=== PATIENT | male | born 1965 | race Caucasian/White ===

== ENCOUNTER 2018-07-22 07:51 | Emergency (ER) | payer OTHER ==
[2018-07-22] MEDS ORDERED: NORMAL SALINE 1000 ML 1,000 ML IV ONE (08:44)
[2018-07-22] MEDS ORDERED: ONDANSETRON HCL INJ/PF 4 MG/2 ML SDV IV ONE (08:47)
[2018-07-22] MEDS ORDERED: KETOROLAC TROMETHAMINE INJ/PF 30 MG/1 ML SDV IV ONE (08:47)
--- NOTE | 2018-07-22 08:50 | ER Document Report ---
ED General - General Chief Complaint: Flank Pain Stated Complaint: FLANK PAIN Time Seen by Provider: 07/22/18 08:40 Notes: 53-year-old male presents with sudden onset of right flank pain starting this morning. Complains of achy pain in his right flank rating to the right lower quadrant of his abdomen he denies any testicular pain complains of increased urinary frequency but denies gross hematuria denies fever chills. Denies any falls or trauma. Denies chest pain denies shortness of breath rates his pain is moderate nothing really makes it better or worse. Upon arrival into room to evaluate and patient is up pacing along the bed. Appears anxious. TRAVEL OUTSIDE OF THE [place] IN LAST 30 DAYS: No - Related Data Allergies/Adverse Reactions: No Known Allergies Allergy (Unverified 07/22/18 07:53) Past Medical History - Social History Smoking Status: Unknown if Ever Smoked Family History: Reviewed & Not Pertinent Review of Systems - Review of Systems Constitutional: denies: Chills, Fever Cardiovascular: denies: Chest pain, Edema Respiratory: denies: Hurts to breathe, Short of breath Gastrointestinal: Abdominal pain, Nausea. denies: Vomiting, Constipation, Black stools, Rectal bleeding Musculoskeletal: Back pain Skin: denies: Rash Neurological/Psychological: denies: Headaches -: Yes All other systems reviewed and negative Physical Exam - Vital signs Vitals: Temp Pulse Resp BP Pulse Ox 97.8 F 64 16 192/105 H 99 07/22/18 08:00 07/22/18 08:00 07/22/18 08:00 07/22/18 08:00 07/22/18 08:00 - Notes Notes: GENERAL_APPEARANCE: well_nourished, alert, cooperative, patient looks very uncomfortable standing pacing VITALS: reviewed, see vital signs table. HEAD: no_swelling\tenderness on the head. EYES: PERRL, EOMI, conjunctiva_clear. NOSE: no_nasal_discharge. MOUTH: (-)decreased moisture. THROAT: no_tonsilar_inflammation, no_airway_obstruction. no_lymphadenopathy NECK: supple, no_neck_tenderness, (-)thyromegaly. BACK: Right CVA_back_tenderness. CHEST_WALL: no_chest_tenderness. LUNGS: no_wheezing, no_rales, no_rhonchi, (-)accessory muscle use, good air exchange bilateral. HEART: normal_rate, normal_rhythm, normal_S1, normal_S2, (-)S3, (-)S4, no_murmur, no_rub. ABDOMEN: normal_BS, soft, lower quadrant_abd_tenderness, (-)guarding, (- )rebound, no_organomegaly, no_abd_masses. Rovsing sign negative obturator and psoas sign negative EXTREMITIES: good pulses in all_extremities, no_swelling\tenderness in the extremities, no_edema. SKIN: warm, dry, good_color, no_rash. MENTAL_STATUS: speech_clear, oriented_X_3, normal_affect, responds_appropriately to questions. Course - Re-evaluation Re-evalutation: 07/22/18 08:50 The patient seems to clinically have a kidney stone we will get a CT the urine and some blood work. We will give him Toradol and Zofran for pain IV fluids. Patient is up pacing alongside of the bed. He is never had a kidney stone in the past. 07/22/18 10:02 Patient does have a 2-3 mm stone that is passed into the bladder. He does have residual hydro-on the right. This will resolve he still having some pain we will give him a couple pain pills along with some Pyridium he is not infected but the Pyridium will help settle down spasm and numb the ureter. The patient will feel better with this. I will have him follow-up with his doctor if he has an additional stone he may need to see urology for evaluation. - Vital Signs Vital signs: Temp Pulse Resp BP Pulse Ox 97.8 F 64 16 187/105 H 99 07/22/18 08:00 07/22/18 08:00 07/22/18 08:00 07/22/18 09:32 07/22/18 08:00 - Laboratory Result Diagrams: 07/22/18 08:57 07/22/18 08:57 Laboratory results interpreted by me: 07/22/18 07/22/18 07/22/18 07:55 08:57 08:57 Seg Neutrophils % 86.0 H Lymphocytes % 10.0 L Monocytes % 2.7 L Absolute Neutrophils 8.3 H BUN 24 H Glucose 174 H AST 80 H ALT 86 H Urine Glucose (UA) >=500 H Urine Blood SMALL H - Diagnostic Test Radiology reviewed: Reports reviewed Radiology results interpreted by me: 07/22/18 10:02 Abdomen/Pelvis CT 07/22/18 08:45 IMPRESSION: 1. Mild right hydroureteronephrosis maybe related to passage of a renal calculus. Near the right ureterovesicle junction, a 2--3 mm calculus is identified within the urinary bladder lumen. 2. Nonobstructing right renal calculi. 3. An exophytic indeterminate left renal lesion, may represent a small cyst. Evaluation with renal ultrasound suggested. 4. Additional findings as above. Discharge - Discharge Clinical Impression: Kidney stone on right side Condition: Good Disposition: HOME, SELF-CARE Instructions: Kidney Stone ([facility]) Additional Instructions: The stone is passed into the bladder the worst is over. You will still have some residual pain due to the amount of damage to the ureter sustained during the passage of the stone. Prescriptions: Hydrocodone/Acetaminophen [[place] 5-325 mg Tablet] 1 tab PO Q4H PRN #10 tablet PRN Reason: Phenazopyridine HCl [Pyridium 200 mg Tablet] 200 mg PO TID #9 tablet Forms: Return to Work
[2018-07-22 09:01] LABS: AMORPHOUS SEDIMENT,URINE TRACE /HPF; APPEARANCE,URINE CLOUDY; BILIRUBIN,URINE NEGATIVE (NEGATIVE); COLOR,URINE YELLOW; GLUCOSE, URINE >=500 mg/dL (NEGATIVE); KETONES,URINE NEGATIVE (NEGATIVE); LEUKOCYTE ESTERASE,URINE NEGATIVE (NEGATIVE); NITRITE,URINE NEGATIVE (NEGATIVE); PROTEIN,URINE NEGATIVE (NEGATIVE); URINE SPECIFIC GRAVITY 1.011; UROBILINOGEN,URINE NEGATIVE mg/dL (<2.0)
[2018-07-22 09:08] LABS: ABSOLUTE BASOPHILS # (AUTO) 0.1 10^3/uL (0.0-0.2); ABSOLUTE EOSINOPHILS # (AUTO) 0.1 10^3/uL (0.0-0.6); ABSOLUTE MONOCYTES (AUTO) 0.3 10^3/uL (0.1-1.4); ABSOLUTE NEUT (AUTO) 8.3 10^3/uL (1.7-8.2); BASOPHILS % (AUTO) 0.6 % (0-2); EOSINOPHILS % (AUTO) 0.7 % (0-6); HEMATOCRIT 44.9 % (37.9-51.0); HEMOGLOBIN 15.7 g/dL (13.5-17.0); MEAN CORPUSCULAR HEMOGLOBIN 30.3 pg (27.0-33.4); MEAN CORPUSCULAR HGB CONC 34.9 g/dL (32.0-36.0); MEAN CORPUSCULAR VOLUME 87 fl (80-97); MONOCYTES % (AUTO) 2.7 % (3-13); PLATELET COUNT 170 10^3/uL (150-450); RED BLOOD COUNT 5.17 10^6/uL (4.35-5.55); RED CELL DISTRIBUTION WIDTH 13.7 % (11.5-14.0); TOTAL CELLS COUNTED % (AUTO) 100 %; WHITE BLOOD COUNT 9.7 10^3/uL (4.0-10.5)
[2018-07-22] MEDS ORDERED: MORPHINE SULFATE 10 MG/ML INJ IV ONE (09:35)
[2018-07-22 09:41] LABS: ALANINE AMINOTRANSFERASE 86 U/L (21-72); ALBUMIN 4.7 g/dL (3.5-5.0); ALKALINE PHOSPHATASE 97 U/L (38-126); ANION GAP 11 (5-19); ASPARTATE AMINO TRANSFERASE 80 U/L (17-59); BILIRUBIN,DIRECT 0.3 mg/dL (0.0-0.4); BILIRUBIN,TOTAL 0.5 mg/dL (0.2-1.3); BLOOD UREA NITROGEN 24 mg/dL (7-20); CALCIUM 9.6 mg/dL (8.4-10.2); CARBON DIOXIDE 26 mmol/L (22-30); CHLORIDE 104 mmol/L (98-107); GLUCOSE 174 mg/dL (75-110); LIPASE 73.1 U/L (23-300); POTASSIUM 4.1 mmol/L (3.6-5.0); SODIUM 141.2 mmol/L (137-145); TOTAL PROTEIN 7.5 g/dL (6.3-8.2)
--- NOTE | 2018-07-22 09:42 | RADIOLOGY REPORT (SQ) ---
EXAM DESCRIPTION: CT ABD/PELVIS NO ORAL OR IV COMPLETED DATE/TIME: 07/22/2018 9:13 am REASON FOR STUDY: right flank COMPARISON: None. TECHNIQUE: CT scan of the abdomen and pelvis performed without intravenous or oral contrast. Images reviewed with lung, soft tissue, and bone windows. Reconstructed coronal and sagittal MPR images revi ewed. All images stored on PACS. All CT scanners at this facility use dose modulation, iterative reconstruction, and/or weight based d osing when appropriate to reduce radiation dose to as low as reasonably achievable (ALARA). [facility]: Dose Right [facility]: CareDose [facility]: Dose Right [facility]: Teradose 4D [facility]: Smart Farmol RADIATION DOSE: CT Rad equipment meets quality standard of care and radiation dose reduction techniq ues were employed. CTDIvol: 15.9 mGy. DLP: 876 mGy-cm. LIMITATIONS: None. FINDINGS: LOWER CHEST: No significant findings. No nodules or infiltrates. NON-CONTRASTED LIVER, SPLEEN, ADRENALS: Evaluation limited by lack of IV contrast. No identified sign ificant masses. PANCREAS: No masses. No peripancreatic inflammatory changes. GALLBLADDER: No identified stones by CT criteria. No inflammatory changes to suggest cholecystitis. RIGHT KIDNEY AND URETER: Mild hydroureteronephrosis maybe related to passage of a renal calculus, se e bladder discussion below. In the upper and lower poles of the kidney, nonobstructing renal calculi . The largest is in the lower pole which measures 4-5 mm. Slight to mild linear stranding and hazine ss in the right perinephric space and surrounding the right proximal ureter probably on an inflammato ry basis. Assessment limited by lack of IV contrast. LEFT KIDNEY AND URETER: An exophytic indeterminate appearing 1.3 cm lesion lateral aspect of the upp er-mid kidney, axial image 36, series 3. Assessment limited by lack of IV contrast. No significant calcifications. No hydronephrosis or hydroureter. AORTA AND RETROPERITONEUM: No aneurysm. No retroperitoneal masses or adenopathy. BOWEL AND PERITONEAL CAVITY: No obvious masses or inflammatory changes. No free fluid. APPENDIX: Normal. PELVIS, BLADDER, AND ABDOMINAL WALL: Small 2-3 mm calculus within the urinary bladder lumen, near th e right ureterovesicle junction. Small 1.5 cm low attenuated nodule in the periumbilical area. CT numbers are within the water range and this may represent a cyst. This finding may also be evaluated on ultrasound examination. No wendi e fluid. BONES: No significant findings. OTHER: Small hiatal hernia. IMPRESSION: 1. Mild right hydroureteronephrosis maybe related to passage of a renal calculus. Near the right ureterovesicle junction, a 2--3 mm calculus is identified within the urinary bladder lumen . 2. Nonobstructing right renal calculi. 3. An exophytic indeterminate left renal lesion, may represent a small cyst. Evaluation with renal ultrasound suggested. 4. Additional findings as above. COMMENT: Quality ID # [id number]: Final reports with documentation of one or more dose reduction techniques (e.g., Automated exposure control, adjustment of the mA and/or kV according to patient size, use of iterative reconstruction technique) TECHNICAL DOCUMENTATION: JOB ID: [id number] [employer]- All Rights Reserved Reading location - IP/workstation name: [email or web address]
[2018-07-22 10:51] VITALS: BP 154/89
== END 2018-07-22 10:30 | disposition home or self-care (01) ==
LOC: ER 07:51
DX: N21.0 Calculus in bladder (principal); N13.39 Other hydronephrosis; R10.9 Unspecified abdominal pain; R35.0 Frequency of micturition; R11.0 Nausea; M54.9 Dorsalgia, unspecified; R10.814 Left lower quadrant abdominal tenderness
CPT/HCPCS: 99284; 96361; 96374; 96375; 36415; 83690; 85025; 80053; 81001; 74176; J1885; J2270; J2405; J7030

== ENCOUNTER → 2019-01-28 | Day surgery (SDC) | payer OTHER ==
[~2019-01-28] MED LIST: BESIFLOXACIN HCL 0.6% OPH SUSP 5 ML BOTTLE OS PRN; CHONDR SU A NA/HYALUR INTRAOC KIT (SURGICARE) ONE; CYCLOPENTOLATE 0.2%/PHENYLEPHRINE 1% OPH SOLN 2 ML OS PRN; DORZOLAMIDE HCL 2%/TIMOLOL MALEAT 0.5% OPH SOLN 10 ML OS PRN; EPINEPHRINE INJ/PF 1 MG/1 ML AMPULE ONE; KETOROLAC TROMETHAMINE 0.45% 4 DROP/0.4 ML DROPERETTE OS PRN; LIDOCAINE 1% INJ-PF (10 MG/ML) 30 ML SDV ONE; TETRACAINE HCL 0.5% OPH SOLN 4 ML OS PRN; TROPICAMIDE 1% OPH SOLN 15 ML OS PRN
== END ==
LOC: SC 11:43
PROVIDERS: ATTEND Ophthalmology
DX: R69 Illness, unspecified (principal); Z53.8 Procedure and treatment not carried out for other reasons
CPT/HCPCS: J0171; J3490